=== PATIENT | male | born 1950 | race Caucasian/White ===

== ENCOUNTER 2017-09-19 17:23 | Emergency (ER) | payer SELFPAY ==
[~2017-09-19] VITALS: Ht 175.3 cm; Wt 105.5 kg
[2017-09-19 20:11] VITALS: BP 133/72
== END 2017-09-19 20:19 | disposition home or self-care (01) ==
LOC: EME 17:23
PROC: 0HQEXZZ Repair Left Lower Arm Skin, External Approach (ICD-10-PCS; principal; 2017-09-19)
DX: S51.812A Laceration without foreign body of left forearm, initial encounter (principal); W29.3XXA Contact with powered garden and outdoor hand tools and machinery, initial encounter; Z79.82 Long term (current) use of aspirin
CPT/HCPCS: 73090; 99281; 99284